=== PATIENT | female | born 1965 | race Two or more races ===

== ENCOUNTER 2022-09-29 08:44 | Outpatient (CLI) | payer OTHER | END 2022-09-29 08:51 | disposition home or self-care (01) | LOC: MRI 08:44 | PROVIDERS: ATTEND General Practice | DX: G20 Parkinson's disease (principal); G25.9 Extrapyramidal and movement disorder, unspecified | CPT/HCPCS: 70551 ==

== ENCOUNTER 2023-07-31 09:07 | Outpatient (CLI) | payer OTHER | END 2023-07-31 09:15 | disposition home or self-care (01) | LOC: TOM 09:07 | DX: G25.0 Essential tremor (principal); G20 Parkinson's disease; R51.9 Headache, unspecified ==